=== PATIENT | male | born 1955 | race Caucasian/White ===

== ENCOUNTER 2022-03-29 09:04 | Inpatient (IN) | payer OTHER, MEDICARE ==
[~2022-03-29] VITALS: Ht 177.8 cm; Wt 91.1 kg
[~2022-03-29 09:04] MED LIST: LIDOcaine 2% (20 mg/ml) 5ml cardiac syringe ONE; LIDOcaine 2% 5ml jelly ONE; calcium chloride 100 MG/1 ML inj IV ONE; epiNEPHrine 0.1mg/ml 10ml syringe ONE; etomidate 2mg/ml inj. ONE; rocuronium 10mg/ml inj IV ONE; sod chloride 0.9% 10ml flush syringe IV ONE; sodium bicarbonate (8.4%) 1 mEq/ml syringe ONE
[2022-03-29] MEDS ORDERED: diltiazem 5mg/ml 5ml inj. IV ONE ×2 (09:20→18:25)
[2022-03-29 10:02] LABS: BASOPHILS % (AUTO) 0.2 % (0-1); EOSINOPHILS % (AUTO) 0.1 % (0-6); HEMATOCRIT 23.6 % (42.0-52.0); HEMOGLOBIN 7.6 g/dl (14.0-17.9); LYMPHOCYTES # (AUTO) 0.2 X10'3 (1.1-4.8); LYMPHOCYTES % (AUTO) 1.8 % (21-51); MEAN CORPUSCULAR HEMOGLOBIN 30.1 PG (27.0-31.0); MEAN CORPUSCULAR HGB CONC 32.3 g/dL (33.0-36.5); MEAN CORPUSCULAR VOLUME 93.3 FL (78-98); MEAN PLATELET VOLUME 8.3 FL (7.4-10.4); MONOCYTES # (AUTO) 0.8 X10'3 (0-0.9); MONOCYTES % (AUTO) 6.3 % (2-12); NEUTROPHILS # (AUTO) 11.9 X10'3 (1.8-7.7); NEUTROPHILS % (AUTO) 91.6 % (42-75); PLATELET COUNT 255 X10'3 (140-440); RED BLOOD COUNT 2.53 X10'6 (4.70-6.10); RED CELL DISTRIBUTION WIDTH 16.1 % (11.5-14.5)
[2022-03-29 10:13] LABS: ALANINE AMINOTRANSFERASE 12 U/L (12-78); ALBUMIN 3.3 G/DL (3.4-5.0); ALBUMIN/GLOBULIN RATIO 0.7 (1.1-1.5); ALKALINE PHOSPHATASE 87 IU/L (46-116); ANION GAP 20 (8-16); ASPARTATE AMINO TRANSFERASE 20 U/L (10-37); BILIRUBIN,TOTAL 0.7 MG/DL (0.1-1.0); BLOOD UREA NITROGEN 71 MG/DL (7-18); BUN/CREATININE RATIO 6.3 (5.4-32.0); CALCIUM 9.7 MG/DL (8.5-10.1); CHLORIDE 87 MMOL/L (99-107); CREATININE 11.33 MG/DL (0.60-1.10); GLUCOSE 155 MG/DL (70-104); POTASSIUM 4.7 MMOL/L (3.5-5.1); SODIUM 129 MMOL/L (135-145); TOTAL CARBON DIOXIDE 22.3 MMOL/L (24-32); TOTAL PROTEIN 7.8 G/DL (6.4-8.2); eGFR 5 ML/MIN
[2022-03-29] MEDS ORDERED: CefTRIAXone 2gm/NS 100ml IVPB 100 ML IV ONE (10:25)
[2022-03-29] MEDS ORDERED: acetaminophen 325mg tablet PO STA (10:38)
[2022-03-29] MEDS ORDERED: normal saline 1000ML IV soln IVB ONE (10:40)
[2022-03-29] MEDS ORDERED: vancomycin/NS 1 GM ADD-VANTAGE 250 ML IV ONE (10:40)
[2022-03-29] MEDS ORDERED: methylPREDNISolone sod succ 125mg/2ml vial IV ONE (11:50)
[2022-03-29] MEDS ORDERED: CALC0.2511 PO (15:27)
[2022-03-29] MEDS ORDERED: APIX5TAB3 PO (15:32)
[2022-03-29] MEDS ORDERED: TACR1CAP PO (15:32)
[2022-03-29] MEDS ORDERED: MYCO500T5 PO (15:32)
[2022-03-29] MEDS ORDERED: METO50TA16 PO (15:32)
[2022-03-29] MEDS ORDERED: PRE5T PO (15:32)
[2022-03-29] MEDS ORDERED: SUCR500T PO (15:32)
[2022-03-29] MEDS ORDERED: ondansetron/PF 4mg/2ml inj IV PRN (16:55)
[2022-03-29] MEDS ORDERED: magnesium hydroxide 30ml (MOM) UD suspension PO PRN (16:55)
[2022-03-29] MEDS ORDERED: mag hydrox/Alum hydrox/simeth 30ml oral suspension PO PRN (16:55)
[2022-03-29] MEDS ORDERED: magnesium Cl slow-release 64mg tablet PO PRN (16:55)
[2022-03-29] MEDS ORDERED: vancomycin/NS 1 GM ADD-VANTAGE 250 ML IV PRN (18:10)
--- NOTE | 2022-03-29 19:15 | NUR ---
I have received report from Danay CORRAL RN and had the opportunity to ask questions. Room is set up and ready for PT arrival.
--- NOTE | 2022-03-29 19:45 | NUR ---
PT arrived to ED via gurney. PT transferred self with stand by assist to bed. PT then placed on bedside monitor. VSS, HR is 110's-130's, BP tolerating. Pt is on RA and tolerating well with O2 sat >96%. PT is A/O answering questions appropriately. Bed is locked and low. Call light is within reach. Will continue to monitor.
[2022-03-29 20:00] VITALS: BP 131/66
[2022-03-29] MEDS: docusate sod 100mg capsule PO SCH (20:00)
[2022-03-29 20:47] LABS: MAGNESIUM 2.6 MG/DL (1.5-2.4); POTASSIUM 4.8 MMOL/L (3.5-5.1)
[2022-03-29 21:00] VITALS: BP 124/87
[2022-03-29] MEDS: SUCROFERRIC OXYHYDROXIDE PO SCH (21:00)
[2022-03-29] MEDS: apixaban 5mg tablet PO SCH (21:02)
[2022-03-29 22:00] VITALS: BP 123/96
[2022-03-29] MEDS: mycophenolate mofetil 250mg capsule PO SCH (22:03)
[2022-03-29 23:00] VITALS: BP 118/86
--- NOTE | 2022-03-29 23:00 | NUR ---
Call placed to on-call Tele -ICU dispatch specialist to report Critical Troponin of 683. No new orders received at this time. PT is receiving his usual Eliquis dose, there have not been rhythm changes, PT remains in A-Fib with rate from 110's-130's. PT denies chest pain. Will continue to monitor.
[2022-03-30] VITALS (19 sets, daily range): BP systolic 37–131; BP diastolic 16–102
[2022-03-30] MEDS: piperacillin/tazo 3.375gm/50ml 50 ML IV SCH ×2 (00:40→08:06)
--- NOTE | 2022-03-30 00:54 | NUR ---
Call placed to on-call Tele-ICU information technology auditor to report critical Troponin of 881. Orders received for Cardizem gtt d/t PT's HR being in 120's-130's and to obtain a Cardiology Consult. Will continue to monitor.
[2022-03-30] MEDS ORDERED: diltiazem-NS 100mg/100ml 100 ML IV SCH (00:55)
[2022-03-30] MEDS ORDERED: VANCOMYCIN LEVEL IV SCH (03:00)
[2022-03-30] MEDS ORDERED: Melatonin 3mg tablet PO ONE (04:40)
[2022-03-30] MEDS: acetaminophen 325mg tablet PO PRN ×2 (04:45→12:17)
[2022-03-30] MEDS ORDERED: amiodarone 150mg/dext, iso-os 100 ML IV ONE (05:40)
[2022-03-30 05:46] LABS: ALANINE AMINOTRANSFERASE 342 U/L (12-78); ALBUMIN/GLOBULIN RATIO 0.7 (1.1-1.5); ALKALINE PHOSPHATASE 91 IU/L (46-116); ANION GAP 20 (8-16); ASPARTATE AMINO TRANSFERASE 488 U/L (10-37); BILIRUBIN,TOTAL 0.6 MG/DL (0.1-1.0); BLOOD UREA NITROGEN 89 MG/DL (7-18); BUN/CREATININE RATIO 7.1 (5.4-32.0); CALCIUM 9.6 MG/DL (8.5-10.1); CHLORIDE 88 MMOL/L (99-107); CREATININE 12.52 MG/DL (0.60-1.10); GLUCOSE 171 MG/DL (70-104); POTASSIUM 5.2 MMOL/L (3.5-5.1); SODIUM 128 MMOL/L (135-145); TOTAL PROTEIN 7.4 G/DL (6.4-8.2); eGFR 4 ML/MIN
[2022-03-30 05:47] LABS: BASOPHILS % (AUTO) 0.1 % (0-1); EOSINOPHILS % (AUTO) 0 % (0-6); HEMATOCRIT 22.3 % (42.0-52.0); HEMOGLOBIN 7.3 g/dl (14.0-17.9); LYMPHOCYTES # (AUTO) 0.3 X10'3 (1.1-4.8); LYMPHOCYTES % (AUTO) 2.1 % (21-51); MEAN CORPUSCULAR HEMOGLOBIN 30.9 PG (27.0-31.0); MEAN CORPUSCULAR HGB CONC 32.5 g/dL (33.0-36.5); MEAN CORPUSCULAR VOLUME 95.1 FL (78-98); MEAN PLATELET VOLUME 8.5 FL (7.4-10.4); MONOCYTES # (AUTO) 0.5 X10'3 (0-0.9); NEUTROPHILS # (AUTO) 15.2 X10'3 (1.8-7.7); NEUTROPHILS % (AUTO) 94.8 % (42-75); PLATELET COUNT 276 X10'3 (140-440); RED BLOOD COUNT 2.35 X10'6 (4.70-6.10); RED CELL DISTRIBUTION WIDTH 16.2 % (11.5-14.5); WHITE BLOOD COUNT 16.1 X10'3 (4.5-11.0)
[2022-03-30 05:50] LABS: MAGNESIUM 2.5 MG/DL (1.5-2.4); PHOSPHORUS 8.7 MG/DL (2.3-4.5); VANCOMYCIN,RANDOM 14.6 UG/ML
--- NOTE | 2022-03-30 06:46 | NUR ---
on call Tele-ICU called d/t receiving critical Troponin. No new orders received at this time. MD would like for Cardiology to consult.
--- NOTE | 2022-03-30 06:47 | NUR ---
Problems reprioritized. Patient report given, questions answered & plan of care reviewed with Buster PATEL.
[2022-03-30] MEDS ORDERED: pantoprazole 40mg Tablet.DR PO SCH (07:30)
[2022-03-30] MEDS: amiodarone/D5 360MG/200ML BAG 200 ML IV SCH ×5 (07:38→17:31)
[2022-03-30] MEDS ORDERED: LIDOcaine 1% (10mg/ml) 2ml vial SQ ONE (08:00)
[2022-03-30] MEDS ORDERED: calcitriol 0.25mcg capsule PO SCH (08:00)
[2022-03-30] MEDS ORDERED: tacrolimus anhydrous 1mg capsule PO SCH (08:00)
[2022-03-30] MEDS ORDERED: normal saline 1000ml 250 ML IV PRN (08:00)
[2022-03-30] MEDS ORDERED: EPOETIN ALFA-EPBX 20,000 UNIT/ML 1 ML MDV IV ONE (08:00)
[2022-03-30] MEDS: SUCROFERRIC OXYHYDROXIDE PO SCH ×2 (08:00→13:00)
[2022-03-30] MEDS: apixaban 5mg tablet PO SCH (08:06)
[2022-03-30] MEDS: docusate sod 100mg capsule PO SCH (08:06)
[2022-03-30] MEDS: mycophenolate mofetil 250mg capsule PO SCH (08:06)
[2022-03-30] MEDS ORDERED: vancomycin/NS 1 GM ADD-VANTAGE 250 ML IV ONE ×2 (11:00→15:00)
--- NOTE | 2022-03-30 11:49 | NUR ---
Malnutrition Consult: Pt admit DX PNA, septic shock, CHF fluid overload, and hx ESRD on HD w/ COVID-19 2 months BOX BENDER per EMR. Pt unsure of wt loss w/ decreased appetite BOX BENDER per RN Malnutrition Screen. Pt/SO seen by RD at bedside; they report intake good during COVID-19 however few weeks BOX BENDER intake has decrease r/t not feeling well. SO has questions regarding ONS for ESRD; RD reviewed ONS recommendations at home depending on PO intake while on HD. Pt appears WD/WN during RD visit, has no edema/wounds, and PO 25% first renal meal this AM pending further PO trends. Pt lacks minimum malnutrition criteria at this time. Noted pt Phos 8.7mg/dl this AM per EMR; RD d/w RN regarding Phos-binder since on HD if MD agreeable. LBM 03/29 receiving routine colace. Will monitor for further PO trends and ONS needs this admit. Rec: 1. continue renal diet; encourage PO 2. if PO remains inadequate; consider Nepro ONS on HD 3. Phos-binder w/ meals per MD 4. routine bowel care 5. wts w/ HD Addendum: 03/30/22 at [address] Amended: Links added.
[2022-03-30] MEDS ORDERED: metoprolol tartrate 25mg tablet PO SCH (14:00)
[2022-03-30] MEDS ORDERED: ondansetron 4mg rapidly disintigrating tab PO PRN (14:35)
[2022-03-30] MEDS ORDERED: HYDROcodone/acetaminophen 5mg/325mg tablet PO PRN (15:20)
[2022-03-30] MEDS: heparin 1,000 units/ml 10ml inj IV ONE ×2 (17:06→17:38)
[2022-03-30] MEDS ORDERED: piperacillin/tazo 3.375gm/50ml 50 ML IV SCH (20:00)
[2022-03-30] MEDS ORDERED: amiodarone 200mg tablet PO SCH (20:00)
[2022-03-30] MEDS ORDERED: Melatonin 3mg tablet PO SCH (21:00)
--- NOTE | 2022-03-30 22:30 | NUR ---
After completing dialysis pt became diaphoretic and tachypneic. Perviously was on room air desaturated to the 70s placed on nasal cannula and increased to low 80s. nonrebreather was placed on pt and increased to low 90s. Pt continued to become diaphoretic and in distress, rapid response was initiated, Abg was obtained and morphine was given per MD ordered. Intensive was notified and pt was transferred to ICU.
[2022-03-30 22:31] LABS: ABG BASE EXCESS -13.8 mmol/L (-2.0-2.0); ABG HCO3 10.1 mmol/L (22.0-26.0); ABG OXYGEN SATURATION 98.5 % (94-97); ABG PCO2 (T) 18.5 mmHg (35.0-48.0); ABG PO2 (T) 146.6 mmHg (75.0-100.0); FCOHb 0.3 % (0.0-3.9); FMetHb 0.2 % (0.0-1.5); TOTAL HEMOGLOBIN 8.7 G/dl (14.0-18.0)
[2022-03-30] MEDS ORDERED: morphine 4 MG/ML inj SYRINge ONE (22:38)
[2022-03-30] MEDS ORDERED: ipratropium 0.5 MG/2.5ML nebule IH ONE (23:00)
[2022-03-30] MEDS ORDERED: meropenem inj 1 GM in normal saline 100ml IV soln 100 ML IV SCH (23:00)
[2022-03-30] MEDS ORDERED: diltiazem 5mg/ml 5ml inj. IV ONE ×2 (23:00)
[2022-03-30] MEDS ORDERED: NORepinephrine 8mg/ 250ml NS 250 ML IV ONE (23:32)
[2022-03-30 23:41] LABS: ALBUMIN 2.8 G/DL (3.4-5.0); ALBUMIN/GLOBULIN RATIO 0.6 (1.1-1.5); ALKALINE PHOSPHATASE 94 IU/L (46-116); ANION GAP 28 (8-16); BILIRUBIN,TOTAL 0.7 MG/DL (0.1-1.0); BLOOD UREA NITROGEN 40 MG/DL (7-18); BUN/CREATININE RATIO 5.8 (5.4-32.0); CALCIUM 9.6 MG/DL (8.5-10.1); CHLORIDE 94 MMOL/L (99-107); CREATININE 6.89 MG/DL (0.60-1.10); GLUCOSE 202 MG/DL (70-104); POTASSIUM 5.3 MMOL/L (3.5-5.1); SODIUM 136 MMOL/L (135-145); TOTAL PROTEIN 7.3 G/DL (6.4-8.2); eGFR 8 ML/MIN
[2022-03-30 23:57] LABS: TOTAL CARBON DIOXIDE 14.4 MMOL/L (24-32)
[2022-03-31] VITALS: BP 289/182
--- NOTE | 2022-03-31 00:02 | NUR ---
[id number] Patient here from Tele. Patient tachypneic, restless, c/o abdominal pain. Answering questions appropriately, but appearing to be anxious and in distress. Lung sounds coarse, able to move all extremities. pupils equal, reactive. Bowel sounds absent or very hypoactive. palpable thrill on L fistula Tripoding, unable to lie flat. Tachycardic, HR 110s to 120s. BP:123/102. Dr. Carter at bedside via Telemedicine. Orders per MD. Placed on high mila NC by RT 2310: Patient tachypneic, desatting to 60- 70s, placed on NRB with high mila by RT. 232: Patient intubated by ER MD, having difficultly measuring BP, NS fluid bolus started 232: Code Blue called after patient became bradycardic and unable to find a pulse. Central line placed by ER MD. Levophed started. See code blue sheet for ACLS meds and rhythm. 0002: Code called by ER MD. Family updated by Dr. Carter. 0015: Patient's and son here. Belongings sent home with family.
[2022-03-31 00:18] LABS: BASOPHILS % (AUTO) 0.1 % (0-1); EOSINOPHILS % (AUTO) 0 % (0-6); LYMPHOCYTES # (AUTO) 0.4 X10'3 (1.1-4.8); MEAN PLATELET VOLUME 8.9 FL (7.4-10.4); MONOCYTES # (AUTO) 0.6 X10'3 (0-0.9); MONOCYTES % (AUTO) 2.6 % (2-12); NEUTROPHILS % (AUTO) 95.3 % (42-75); PLATELET COUNT 361 X10'3 (140-440)
[2022-03-31 00:20] LABS: HEMATOCRIT 24.9 % (42.0-52.0); HEMOGLOBIN 8.3 g/dl (14.0-17.9); MEAN CORPUSCULAR HEMOGLOBIN 31.2 PG (27.0-31.0); MEAN CORPUSCULAR VOLUME 93.9 FL (78-98); RED BLOOD COUNT 2.65 X10'6 (4.70-6.10)
[2022-03-31 00:21] LABS: MEAN CORPUSCULAR HGB CONC 33.2 g/dL (33.0-36.5); RED CELL DISTRIBUTION WIDTH 15.7 % (11.5-14.5)
[2022-03-31] MEDS ORDERED: etomidate 2mg/ml inj. IV ONE (00:30)
[2022-03-31] MEDS ORDERED: rocuronium 10mg/ml inj IV ONE (00:30)
[2022-03-31 01:07] LABS: ALANINE AMINOTRANSFERASE 235 U/L (12-78); ASPARTATE AMINO TRANSFERASE 231 U/L (10-37)
[2022-03-31] MEDS ORDERED: pneumococcal 23-VAL P-sac vacc 25 mcg/0.5ml vial IMVAC ONE (10:00)
== END 2022-03-31 00:02 | DRG 871 ==
LOC: ER 09:04 → ED HOLD 17:08 → CICU 2S 19:32 → PCU 3S 03-30 13:01 → CICU 2S 03-30 22:52
PROVIDERS: ADMIT Internal Medicine Critical Care Medicine; ATTEND Internal Medicine Critical Care Medicine
PROC: 5A0935A Assistance with Respiratory Ventilation, Less than 24 Consecutive Hours, High Flow/Velocity Cannula (ICD-10-PCS; principal; 2022-03-30)
PROC: 5A12012 Performance of Cardiac Output, Single, Manual (ICD-10-PCS; 2022-03-30)
PROC: 06HY33Z Insertion of Infusion Device into Lower Vein, Percutaneous Approach (ICD-10-PCS; 2022-03-30)
PROC: 0BH17EZ Insertion of Endotracheal Airway into Trachea, Via Natural or Artificial Opening (ICD-10-PCS; 2022-03-30)
PROC: 5A1D70Z Performance of Urinary Filtration, Intermittent, Less than 6 Hours Per Day (ICD-10-PCS; 2022-03-30)
PROC: 5A0935A Assistance with Respiratory Ventilation, Less than 24 Consecutive Hours, High Flow/Velocity Cannula (ICD-10-PCS; 2022-03-31)
DX: A41.9 Sepsis, unspecified organism (principal); R65.21 Severe sepsis with septic shock; N18.6 End stage renal disease; J96.01 Acute respiratory failure with hypoxia; J18.9 Pneumonia, unspecified organism; I13.2 Hypertensive heart and chronic kidney disease with heart failure and with stage 5 chronic kidney disease, or end stage renal disease; I48.20 Chronic atrial fibrillation, unspecified; I24.8 Other forms of acute ischemic heart disease; R00.1 Bradycardia, unspecified; I46.9 Cardiac arrest, cause unspecified; Z20.822 Contact with and (suspected) exposure to COVID-19; I50.9 Heart failure, unspecified; Z79.01 Long term (current) use of anticoagulants; Z99.2 Dependence on renal dialysis; Z95.1 Presence of aortocoronary bypass graft; Z91.018 Allergy to other foods; Z87.891 Personal history of nicotine dependence; Z79.899 Other long term (current) drug therapy; Z86.16 Personal history of COVID-19
CPT/HCPCS: 36415; 36600; 71045; 80053; 80202; 82803; 82948; 83605; 83735; 83880; 84100; 84132; 84145; 84439; 84484; 85018; 85025; 87040; 87081; 87635; 92508; 92616; 94760; 94799; 99291; 99292; C9803; G0257; G0378; J0171; J0282; J0696; J1644; J2270; J2543; J2930; J3370; J3490; J7030; J7507; J7517; Q4081